=== PATIENT | female | born 1940 | race Caucasian/White ===

== ENCOUNTER 2017-06-27 11:49 | Emergency (ER) | payer MEDICARE, OTHER ==
[~2017-06-27] VITALS: Ht 190.5 cm; Wt 87.8 kg
[~2017-06-27 11:49] MED LIST: DABI150 PO; DIAZ5 PO; OXYC15TA PO; ZOFR4TAB3 SL
[2017-06-27 12:20] VITALS: BP 111/57; PULSE 85; RESP 16; TEMP 100.1; O2SAT 94
--- NOTE | 2017-06-27 13:02 | RADRPT ---
EXAM DATE/TIME: 06/27/2017 12:39 [place] COMPARISON: No previous studies available for comparison. INDICATIONS : Left shoulder pain post fall. MEDICAL HISTORY : Fibromyalgia. SURGICAL HISTORY : Hysterectomy. ENCOUNTER: Initial ACUITY: 3 days PAIN SCORE: 10/10 LOCATION: Left shoulder FINDINGS: 2 views left shoulder reveal an acute comminuted fracture involving the proximal humeral neck. Limite d rotation is seen on these 2 images. No discrete intra-articular extension is seen to the surface of the humeral head. No significant angulation or distraction. The scapula and clavicle appear intact. Soft tissues are unremarkable. CONCLUSION: Acute comminuted proximal humeral fracture. Maxim Trujillo Jr., MD on June 27, 2017 at 12:58 Board Certified Radiologist. This report was verified electronically.
[2017-06-27] MEDS ORDERED: OXYC1CAP PO (13:06)
[2017-06-27] MEDS ORDERED: BLOOD THINNER (13:06)
[2017-06-27] MEDS ORDERED: DULO20 PO (13:06)
[2017-06-27] MEDS ORDERED: HYDROmorphone HCL PF 1 MG/ML VIAL SQ ONE (13:30)
--- NOTE | 2017-06-27 13:44 | PD ---
HPI Chief Complaint: Fall Time Seen by Provider: 13:10 Travel History International Travel<30 days: No Contact w/Intl Traveler<30days: No Traveled to known affect area: No History of Present Illness HPI 76-year-old female complains of left shoulder pain after she experienced a fall at home. The fall was mechanical in nature and there was no head injury or presyncope/loss of consciousness type of complaint prior to the fall. The patient had a fall 2 days prior and arrives today with constant throbbing pain which she rates to be 15/10. 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 She follows with pain management. Onset sudden. Timing constant. PFSH Past Medical History Hx Anticoagulant Therapy: Yes Atrial Fibrillation: Yes Anxiety: Yes Depression: Yes Diminished Hearing: No Fibromyalgia: Yes ?: Not Menopausal: Yes Past Surgical History Hysterectomy: Yes Social History Alcohol Use: Yes (2 day) Tobacco Use: Yes (1/2 ppd) Substance Use: No Allergies-Medications (Allergen,Severity, Reaction): Coded Allergies: No Known Allergies (Unverified Adverse Reaction, Unknown, 06/27/17) Reported Meds & Prescriptions Reported Meds & Active Scripts Active Oxycodone-Acetaminophen 5-325 mg Tab 1-2 Tab PO Q6H PRN Reported [Blood Thinner] Cymbalta DR (Duloxetine HCl) 20 Mg Capdr 20 Mg PO DAILY Oxycodone (Oxycodone HCl) 5 Mg Cap Unknown Dose PO Q4H PRN Review of Systems Except as stated in HPI: all other systems reviewed are Neg General / Constitutional: No: Fever Physical Exam Narrative GENERAL: 76-year-old female well-nourished well-developed mild distress secondary to pain Vital Signs Date Time Temp Pulse Resp B/P (MAP) Pulse Ox O2 Delivery O2 Flow Rate FiO2 06/27/17 12:20 100.1 85 16 111/57 (75) 94 The repeat temperature is 98.7. No antipyretic given. SKIN: Warm and dry. HEAD: Atraumatic. Normocephalic. EYES: Pupils equal and round. No scleral icterus. No injection or drainage. ENT: No nasal bleeding or discharge. Mucous membranes pink and moist. NECK: Trachea midline. No JVD. CARDIOVASCULAR: Regular rate and rhythm. RESPIRATORY: No accessory muscle use. Clear to auscultation. Breath sounds equal bilaterally. GASTROINTESTINAL: Abdomen soft, non-tender, nondistended. Hepatic and splenic margins not palpable. MUSCULOSKELETAL: No evidence compartment syndrome of the left upper extremity proximal portion. There is minimal swelling tenderness about the region of the humeral head on the left side. Range of motion is limited secondary to pain. Range of motion at the wrist and fingers and hand preserved. Conjunction left elbow limited. 2+ radial artery pulse bilaterally. Sensation intact bilaterally. NEUROLOGICAL: Awake and alert. No obvious cranial nerve deficits. Motor grossly within normal limits. Five out of 5 muscle strength in the arms and legs. Normal speech. PSYCHIATRIC: Appropriate mood and affect; insight and judgment normal. Data Data Last Documented VS Vital Signs Date Time Temp Pulse Resp B/P (MAP) Pulse Ox O2 Delivery O2 Flow Rate FiO2 06/27/17 12:20 100.1 85 16 111/57 (75) 94 Orders Orders Shoulder, Limited(2vws) (06/27/17 ) Sling And Swathe (06/27/17 ) Hydromorphone Pf Inj (Dilaudid Pf Inj) (06/27/17 13:30) Ed Discharge Order (06/27/17 13:43) Hydromorphone Pf Inj (Dilaudid Pf Inj) (06/27/17 13:45) MDM Medical Decision Making Medical Screen Exam Complete: Yes Emergency Medical Condition: Yes Medical Record Reviewed: Yes Differential Diagnosis Humeral head fracture, humeral shaft fracture, contusion Narrative Course Last Impressions Shoulder X-Ray 06/27/17 0000 Signed Impressions: Service Date/Time: Tuesday, June 27, 2017 12:39 - CONCLUSION: Acute comminuted proximal humeral fracture. Maxim Trujillo Jr., MD Sling and swath applied. There is no palpable deformity about the elbow or distal humerus. Patient reports she does not have oxycodone tablets at home and a quantity of 12 Percocet will be prescribed here in keeping with institutional prescribing guidelines. Patient will follow-up with orthopedics. She has follow-up with Dr. Mccray in [place] for PMD as well. All questions answered over approximately 20 minutes of bedside discussion with patient. Diagnosis Primary Impression: Proximal humerus fracture Qualified Codes: S42.202A - Unspecified fracture of upper end of left humerus , initial encounter for closed fracture Referrals: Xavier Arevalo MD 2 days Primary Care Physician 1 day Med/Other Pt SpecificInfo: No Change to Meds Scripts Oxycodone-Acetaminophen (Oxycodone-Acetaminophen) 5-325 mg Tab 1-2 TAB PO Q6H Y for PAIN SCALE 6 TO 10, #12 TAB 0 Refills Prov: Faisal Springer MD 06/27/17 Disposition: 01 DISCHARGE HOME Condition: Stable Faisal Springer MD Jun 27, 2017 13:44
[2017-06-27] MEDS ORDERED: HYDROmorphone HCL PF 2 MG/ML VIAL SQ ONE (13:45)
[2017-06-27] MEDS ORDERED: OXYC1TAB63 PO (14:31)
== END 2017-06-27 14:48 | disposition home or self-care (01) ==
LOC: PHED 11:49
DX: S42.202A Unspecified fracture of upper end of left humerus, initial encounter for closed fracture (principal); W18.30XA Fall on same level, unspecified, initial encounter; Y92.009 Unspecified place in unspecified non-institutional (private) residence as the place of occurrence of the external cause; I48.91 Unspecified atrial fibrillation; F32.9 Major depressive disorder, single episode, unspecified; F41.9 Anxiety disorder, unspecified; M79.7 Fibromyalgia
CPT/HCPCS: 29240; 73030; 96372; 99283; J1170